=== PATIENT | female | born 1960 | race Caucasian/White ===

== ENCOUNTER → 2017-05-25 | Outpatient (CLI) | payer BC, OTHER ==
[~2017-05-25] MED LIST: CLON0.5T20 PO; ESTROGEN PO; LORA-445 PO; REGADENOSON 0.4 MG/5 ML SYRINGE ONE
== END | disposition home or self-care (01) ==
LOC: CFH 12:54
PROVIDERS: ATTEND Internal Medicine Cardiovascular Disease
DX: I21.9 Acute myocardial infarction, unspecified (principal)
CPT/HCPCS: 78452; 93017; A9502; J2785

== ENCOUNTER → 2017-05-30 | Outpatient (CLI) | payer BC, OTHER ==
[~2017-05-30] MED LIST changes: -REGADENOSON 0.4 MG/5 ML SYRINGE ONE
== END | disposition home or self-care (01) ==
LOC: CFH 13:22
PROVIDERS: ATTEND Internal Medicine Cardiovascular Disease
DX: R94.31 Abnormal electrocardiogram [ECG] [EKG] (principal); R07.89 Other chest pain
CPT/HCPCS: 93306

== ENCOUNTER → 2018-03-07 | Outpatient (CLI) | payer BC | END | disposition home or self-care (01) | LOC: PETCFH 08:09 | PROVIDERS: ATTEND Internal Medicine Gastroenterology | DX: R11.2 Nausea with vomiting, unspecified (principal); K52.9 Noninfective gastroenteritis and colitis, unspecified; K50.00 Crohn's disease of small intestine without complications; K57.30 Diverticulosis of large intestine without perforation or abscess without bleeding; R53.83 Other fatigue; E89.41 Symptomatic postprocedural ovarian failure; F41.9 Anxiety disorder, unspecified; G25.81 Restless legs syndrome; M79.10 Myalgia, unspecified site; Z68.35 Body mass index [BMI] 35.0-35.9, adult | CPT/HCPCS: 78264; A9541 ==

== ENCOUNTER 2018-09-29 12:10 | Inpatient (IN) | payer BC ==
[~2018-09-29] VITALS: Ht 165.1 cm; Wt 86.4 kg
[2018-09-29] MEDS ORDERED: SODIUM CHLORIDE FLUSH 10ML SYR IVF ONE (13:00)
[2018-09-29] MEDS ORDERED: HYDROmorphone 2 MG/ML, 1ML IVPush PRN (13:00)
[2018-09-29] MEDS ORDERED: ONDANSETRON 2MG/ML, 2ML IVPush ONE (13:00)
[2018-09-29] MEDS ORDERED: SODIUM CHLORIDE 0.9% 1,000ML IVBOLUS ONE (13:00)
[2018-09-29 13:08] LABS: BASOPHILS # (AUTO) 0.02 x10^3/uL (0-0.1); BASOPHILS % (AUTO) 0 % (0-1); EOSINOPHILS # (AUTO) 0.06 x10^3/uL (0-0.4); EOSINOPHILS % (AUTO) 1 % (1-7); LYMPHOCYTES # (AUTO) 1.39 x10^3/uL (1-3.4); LYMPHOCYTES % (AUTO) 15 % (22-44); MD NO; MEAN CORPUSCULAR HEMOGLOBIN 29.1 pg (27.0-34.8); MEAN CORPUSCULAR HGB CONC 32.5 g/dL (32.4-35.8); MEAN CORPUSCULAR VOLUME 89.4 fL (80-100); MEAN PLATELET VOLUME 8.1 fL (7.4-10.4); MONOCYTES # (AUTO) 0.83 x10^3/uL (0.2-0.8); MONOCYTES % (AUTO) 9 % (2-9); NEUTROPHILS # (AUTO) 7.22 x10^3/uL (1.8-6.8); NEUTROPHILS % (AUTO) 76 % (42-75); PLATELET COUNT 268 x10^3/uL (130-400); RED BLOOD COUNT 4.54 x10^6/uL (3.82-5.3); RED CELL DISTRIBUTION WIDTH 14.7 % (9.6-15.2)
[2018-09-29 13:21] LABS: ALANINE AMINOTRANSFERASE 25 U/L (12-78); ALBUMIN 3.1 g/dL (3.4-5.0); ANION GAP 5 mmol/L (5-15); CALCIUM 8.4 mg/dL (8.5-10.1); CHLORIDE 109 mmol/L (98-107); CREATININE 1.45 mg/dL (0.55-1.02)
[2018-09-29 13:23] LABS: ALKALINE PHOSPHATASE 40 U/L (45-117); BILIRUBIN,TOTAL 0.2 mg/dL (0.2-1.0); TOTAL PROTEIN 6.2 g/dL (6.4-8.2)
[2018-09-29 13:28] LABS: HCT (SEDRATE) 39.9 % (34.6-47.8)
--- NOTE | 2018-09-29 13:31 | NUR ---
PT PRESENTED TO ED WITH RIGHT LOWER QUADRANT ABD PAIN FOR A FEW DAYS. PT STATED SHE WAS DISCHARGED FROM [facility] FOR A GI BLEED AND WAS ADMITTED. PT A&OX4. PT PLACED IN ROOM AND PLACED ON BP AND CONT. PULSE OXIMETER. ASSESSMENT COMPLETED. CALL LIGHT IN REACH. IV STARTED AND BLOOD CULTURES DRAWN X2.
[2018-09-29] MEDS ORDERED: ONDANSETRON 2MG/ML, 2ML ONE (13:36)
[2018-09-29] MEDS ORDERED: HYDROmorphone 1 MG/ML, 1ML VIAL ONE (13:37)
--- NOTE | 2018-09-29 13:56 | NUR ---
UNABLE TO SCAN DILAUDID 1MG IV GIVEN
--- NOTE | 2018-09-29 14:36 | NUR ---
PT ASSISTED TO BSC AND URINE SAMPLE OBTAINED AND SENT TO LAB.
[2018-09-29] MEDS ORDERED: SODIUM CHLORIDE 0.9% 1,000 ML IV ONE ×2 (14:41→15:26)
[2018-09-29 14:50] LABS: CULTURE INDICATED? YES; MICROSCOPIC INDICATED
--- NOTE | 2018-09-29 14:50 | NUR ---
pt taken to ct scan
[2018-09-29] MEDS ORDERED: ESTR1TAB15 PO (15:24)
[2018-09-29] MEDS ORDERED: TIZA2TAB PO (15:25)
[2018-09-29] MEDS ORDERED: CIPR500T3 PO (15:26)
[2018-09-29] MEDS ORDERED: METR500T PO (15:26)
--- NOTE | 2018-09-29 15:27 | NUR ---
PT WILL BE ADMITTED TO HOSPITAL.
[2018-09-29] MEDS ORDERED: ONDA4TAB7 PO (15:28)
[2018-09-29] MEDS ORDERED: SODIUM CHLORIDE FLUSH 10ML SYR IVF PRN (15:30)
[2018-09-29] MEDS ORDERED: CYCLOBENZAPRINE 10 MG TABLET PO PRN (16:30)
[2018-09-29] MEDS ORDERED: TRAZODONE 50MG TABLET PO PRN (16:30)
[2018-09-29] MEDS ORDERED: hydrALAzine 20 MG/ML, 1ML IVPush PRN (16:30)
[2018-09-29] MEDS ORDERED: GUAIFENESIN/COD200MG-20MG/10ML LIQUID PO PRN (16:30)
[2018-09-29] MEDS ORDERED: ACETAMINOPHEN 325 MG TABLET PO PRN (16:30)
[2018-09-29] MEDS ORDERED: DOCUSATE 100 MG CAPSULE PO PRN (16:30)
[2018-09-29] MEDS: LACTATED RINGERS 1,000 ML IV SCH (18:18)
[2018-09-29] MEDS: ONDANSETRON 2MG/ML, 2ML IVPush PRN (18:18)
[2018-09-29] MEDS: morphine SULFATE 10 MG/ML, 1ML IVPush PRN ×2 (18:18→21:32)
[2018-09-29 19:27] VITALS: BP 113/74
[2018-09-29] MEDS: TIZANIDINE 2MG TABLET PO SCH (21:32)
[2018-09-29] MEDS: ENOXAPARIN 40 MG/0.4 ML SQ SCH (21:32)
[2018-09-30] MEDS: LACTATED RINGERS 1,000 ML IV SCH ×3 (00:50→16:25)
[2018-09-30 02:38] VITALS: BP 97/63
[2018-09-30] MEDS: morphine SULFATE 10 MG/ML, 1ML IVPush PRN ×6 (03:02→22:02)
[2018-09-30] MEDS: ONDANSETRON 2MG/ML, 2ML IVPush PRN ×4 (03:02→22:08)
[2018-09-30] MEDS: TIZANIDINE 2MG TABLET PO SCH ×4 (05:49→22:02)
[2018-09-30 07:00] LABS: BASOPHILS # (AUTO) 0.03 x10^3/uL (0-0.1); BASOPHILS % (AUTO) 0 % (0-1); EOSINOPHILS # (AUTO) 0.07 x10^3/uL (0-0.4); EOSINOPHILS % (AUTO) 1 % (1-7); LYMPHOCYTES # (AUTO) 2.14 x10^3/uL (1-3.4); LYMPHOCYTES % (AUTO) 21 % (22-44); MD NO; MEAN CORPUSCULAR HEMOGLOBIN 29.2 pg (27.0-34.8); MEAN CORPUSCULAR HGB CONC 32.4 g/dL (32.4-35.8); MEAN PLATELET VOLUME 8.6 fL (7.4-10.4); MONOCYTES # (AUTO) 0.74 x10^3/uL (0.2-0.8); MONOCYTES % (AUTO) 7 % (2-9); NEUTROPHILS # (AUTO) 7.15 x10^3/uL (1.8-6.8); NEUTROPHILS % (AUTO) 71 % (42-75); PLATELET COUNT 252 x10^3/uL (130-400); RED BLOOD COUNT 4.54 x10^6/uL (3.82-5.3); RED CELL DISTRIBUTION WIDTH 15.2 % (9.6-15.2)
[2018-09-30 07:16] VITALS: BP 102/68
[2018-09-30 11:55] LABS: INTERNATIONAL NORMALIZED RATIO 1.12 (0.93-1.1); PROTHROMBIN TIME 11.7 Seconds (9.6-11.5)
[2018-09-30 11:57] LABS: ANION GAP 7 mmol/L (5-15); CALCIUM 8.2 mg/dL (8.5-10.1); CHLORIDE 108 mmol/L (98-107); CREATININE 1.34 mg/dL (0.55-1.02)
[2018-09-30 13:27] VITALS: BP 90/60
[2018-09-30] MEDS ORDERED: GADOBUTROL 10 MMOL/10 ML PFS ONE (18:04)
[2018-09-30 19:11] VITALS: BP 97/59
[2018-09-30] MEDS: ENOXAPARIN 40 MG/0.4 ML SQ SCH (22:08)
[2018-10-01] MEDS: LACTATED RINGERS 1,000 ML IV SCH ×3 (00:17→14:51)
[2018-10-01 01:17] VITALS: BP 97/62
[2018-10-01] MEDS: morphine SULFATE 10 MG/ML, 1ML IVPush PRN ×3 (02:37→14:45)
[2018-10-01] MEDS: TIZANIDINE 2MG TABLET PO SCH ×3 (05:31→16:37)
[2018-10-01 07:15] VITALS: BP 101/69
[2018-10-01] MEDS: ONDANSETRON 2MG/ML, 2ML IVPush PRN ×2 (08:13→14:45)
[2018-10-01 12:25] VITALS: BP 95/61
[2018-10-01] MEDS ORDERED: OXYcodone IR 5MG TABLET PO PRN (16:00)
[2018-10-01] MEDS ORDERED: OXYC5TAB3 PO (16:38)
[2018-10-01 19:15] LABS: ANION GAP 10 mmol/L (5-15); CALCIUM 8.2 mg/dL (8.5-10.1); CHLORIDE 106 mmol/L (98-107); CREATININE 1.22 mg/dL (0.55-1.02)
== END 2018-10-01 17:38 | disposition home or self-care (01) | DRG 393 ==
LOC: ED 16:40 → 3NE 16:54
PROVIDERS: ADMIT Hospitalist; ATTEND Hospitalist
DX: K63.89 Other specified diseases of intestine (principal); K85.00 Idiopathic acute pancreatitis without necrosis or infection; N17.9 Acute kidney failure, unspecified; G25.81 Restless legs syndrome; G58.9 Mononeuropathy, unspecified; R29.818 Other symptoms and signs involving the nervous system; I95.9 Hypotension, unspecified; M79.604 Pain in right leg; R42 Dizziness and giddiness; E66.9 Obesity, unspecified; R70.0 Elevated erythrocyte sedimentation rate; R74.8 Abnormal levels of other serum enzymes; Z68.31 Body mass index [BMI] 31.0-31.9, adult; Z80.0 Family history of malignant neoplasm of digestive organs; Z82.49 Family history of ischemic heart disease and other diseases of the circulatory system; Z90.710 Acquired absence of both cervix and uterus; Z90.49 Acquired absence of other specified parts of digestive tract; Z90.722 Acquired absence of ovaries, bilateral
CPT/HCPCS: 36415; 72158; 74177; 80048; 80053; 81001; 82533; 82784; 83605; 83690; 83735; 84100; 85025; 85610; 85651; 86140; 86160; 86162; 87040; 87086; 93005; 93975; 96361; 96374; 96375; A9585; G0378; J1170; J1650; J2405; J2270; J7030; J7120

== ENCOUNTER 2019-11-14 10:58 | Day surgery (SDC) | payer BC, OTHER ==
[~2019-11-14] VITALS: Ht 165.1 cm; Wt 82.9 kg
[~2019-11-14 10:58] MED LIST changes: +CIPR500T3 PO; +ESTR1TAB15 PO; +METR500T PO; +ONDA4TAB7 PO; +OXYC5TAB3 PO; +TIZA2TAB4 PO
[2019-11-14 11:50] VITALS: BP 130/80
[2019-11-14] MEDS ORDERED: SODIUM CHLORIDE 0.9% 1,000 ML IV SCH (11:52)
[2019-11-14] MEDS ORDERED: LIDOCAINE-MPF 1%, 5ML ONE (13:33)
[2019-11-14 15:56] LABS: GLUCOSE, CSF 58 mg/dL (40-80); TOTAL PROTEIN,CSF 34 mg/dL (15-45)
== END 2019-11-14 17:55 | disposition home or self-care (01) ==
LOC: OUT 10:58
PROVIDERS: ATTEND Psychiatry & Neurology Neurology
DX: G98.8 Other disorders of nervous system (principal); Z88.5 Allergy status to narcotic agent; Z88.8 Allergy status to other drugs, medicaments and biological substances; Z91.018 Allergy to other foods; Z79.899 Other long term (current) drug therapy; Z82.49 Family history of ischemic heart disease and other diseases of the circulatory system
CPT/HCPCS: 36415; 62328; 82040; 82042; 82784; 82945; 83873; 84157; 86592; 86645; 86695; 86696; 86762; 86777; 86778; 87070; 87116; 87149; 87205; 87206; 89051

== ENCOUNTER 2019-11-16 08:07 | Emergency (ER) | payer BC ==
[~2019-11-16] VITALS: Ht 165.1 cm; Wt 87.2 kg
[2019-11-16] MEDS ORDERED: MORPHINE SULFATE 4 MG/ML, 1ML ONE ×2 (08:57→09:58)
[2019-11-16] MEDS ORDERED: ONDANSETRON 2MG/ML, 2ML ONE (08:57)
[2019-11-16] MEDS ORDERED: ONDANSETRON 2MG/ML, 2ML IVPush ONE (09:00)
[2019-11-16] MEDS: MORPHINE SULFATE 4 MG/ML, 1ML IVPush PRN ×2 (09:07→10:03)
--- NOTE | 2019-11-16 09:09 | NUR ---
PT TO ED FROM HOME W C/O ZAMBRANO S/P LP ON SUNDAY (DX FOR NEURO ISSUES). WORSE ON SITTING UP/STANDING. SAHM IN ROOM, PIV EST MEDS PER MAR ROOM DARKENED AWAITING ANESTHESIA.
[2019-11-16] MEDS ORDERED: SODIUM CHLORIDE FLUSH 10ML SYR IVF ONE (10:00)
--- NOTE | 2019-11-16 10:03 | NUR ---
ANESTHESIA AT BEDSIDE FOR BLOOD PATCH. PT EXPERIENCING A LOT OF PAIN AROUND PUNCTURE SITE AFTER. 2ND DOSE MS PER JUN. PT TEARFUL. MD STILL AT BEDSIDE. PT DENIES PAIN DOWN HER LEGS. KING.
--- NOTE | 2019-11-16 10:34 | NUR ---
PT CONT TO C/O PAIN, TEARFUL. DESAT TO 70S. PLACED ON O2 VIA NC W/ IMPROVEMENT TO 100%. CTM.
[2019-11-16 11:05] VITALS: BP 114/64
== END 2019-11-16 11:07 | disposition home or self-care (01) ==
LOC: ED 10:17
DX: G97.1 Other reaction to spinal and lumbar puncture (principal); M54.2 Cervicalgia
CPT/HCPCS: 96374; 96375; 96376; 99284; J2270; J2405